=== PATIENT | male | born 1955 | race Caucasian/White ===

== ENCOUNTER 2017-06-13 13:07 | Emergency (ER) | payer MEDICARE, OTHER ==
[2017-06-13] MEDS ORDERED: Adacel Vial IM ONE ×2 (13:26→13:35)
[2017-06-13] MEDS ORDERED: NORCO 5/325 MG PO ONE (13:26)
[2017-06-13] MEDS ORDERED: BACIGUENT PACKET TP ONE (13:26)
--- NOTE | 2017-06-13 13:34 | ERPHSYRPT ---
- History of Present Illness Time Seen by Provider: 06/13/17 13:27 Source: patient Exam Limitations: no limitations Patient Subjective Stated Complaint: rt thumb laceration Triage Nursing Assessment: 12 noon--cut tip of rt thumb with saw. bleeding controlled at present. radial pulse present. tip of rt thumb laceration 1.5 cm long. no other injury. good sensation. Physician History: This is a 62-year-old white male arrives with complaint of laceration/skin avulsion to the tip of the right distal thumb symptoms since noon. According to patient she was a using a table saw and struck she had distal right thumb with the table saw on the tip. Patient has pain in the distal right thumb he has appears to be a 1 cm skin avulsion fairly superficial to the distal right thumb. He has full range of motion to the right thumb and right hand. He has no other complaints. Past medical history includes COPD, cataracts, asthma, emphysema, diabetes type 2, arthritis, GERD, prostate problems. Past surgical history includes cardiac catheter, hernia, right hip surgery, bilateral cataracts. Social history former smoker. Occurred: just prior to arrival (noon today) Quality: constant Severity of Pain-Max: mild Severity of Pain-Current: mild Extremities Pain Location: thumb: right Modifying Factors: Improves With: nothing Associated Symptoms: none Allergies/Adverse Reactions: aspirin Allergy (Severe, Verified 06/13/17 13:27) throat swells levofloxacin [From Levaquin] Allergy (Mild, Verified 06/13/17 13:27) Hives Home Medications: Acetaminophen 500 mg [Tylenol Extra Strength 500 mg] 1,000 mg PO DAILY PRN 09/09/13 [History] Albuterol Common Canister [Proventil Common Canister] 2 puff IH QID PRN [History] Cetirizine HCl [Zyrtec] 10 mg PO DAILY PRN 09/09/13 [History] Etanercept [Enbrel] 50 mg SQ WEEKLY 09/09/13 [History] Fluticasone/Salmeterol 500/50* [Advair 500-50 Diskus] 1 puff IH BID 09/09/13 [History] Levalbuterol HCl 1.25 MG/0.5M* [Xopenex 1.25 MG/0.5 ML UD NEBULE] 1.25 mg IH QID 09/09/13 [History] Metformin HCl Xr 500 mg [Glucophage XR 500 MG] 500 mg PO DAILY 09/09/13 [ History] Mometasone Furoate [Nasonex] 2 spray NS DAILY 09/09/13 [History] Montelukast Sodium 10 mg [Singulair 10 MG] 10 mg PO DAILY 09/09/13 [History] Prednisone 20 mg [Deltasone 20 mg] 20 mg PO DAILY 09/09/13 [History] Tamsulosin HCl 0.4 mg [Flomax 0.4 MG] 0.4 mg PO DAILY 09/09/13 [History] Hx Tetanus, Diphtheria Vaccination/Date Given: No Hx Influenza Vaccination/Date Given: Yes Hx Pneumococcal Vaccination/Date Given: Yes (less than 5 years possibly 2011) - Review of Systems Constitutional: No Fever, No Chills Eyes: No Symptoms Ears, Nose, & Throat: No Symptoms Respiratory: No Cough, No Dyspnea Cardiac: No Chest Pain, No Edema, No Syncope Abdominal/Gastrointestinal: No Abdominal Pain, No Nausea, No Vomiting, No Diarrhea Genitourinary Symptoms: No Dysuria Musculoskeletal: Other (right thumb pain distally) Skin: Other (1 cm skin avulsion distal right thumb) Neurological: No Dizziness, No Focal Weakness, No Sensory Changes Psychological: No Symptoms Endocrine: No Symptoms All Other Systems: Reviewed and Negative - Past Medical History Pertinent Past Medical History: Yes Neurological History: No Pertinent History ENT History: Cataracts Cardiac History: No Pertinent History Respiratory History: Asthma, COPD, Emphysema Endocrine Medical History: Diabetes Type II Musculoskeletal History: Arthritis, Osteoarthritis GI Medical History: GERD History: No Pertinent History Psycho-Social History: No Pertinent History Male Reproductive Disorders: Prostate Problems - Past Surgical History Past Surgical History: Yes Neuro Surgical History: No Pertinent History Cardiac: Cardiac Catheterization Respiratory: No Pertinent History Gastrointestinal: Hernia Repair Genitourinary: No Pertinent History Musculoskeletal: Orthopedic Surgery Male Surgical History: Vasectomy Other Surgical History: sinus surgery. bilateral cataracts. RIGHT HIP REPLACEMENT - Social History Smoking Status: Never smoker How long have you smoked: less than Exposure to second hand smoke: No Drug Use: none Patient Lives Alone: No - Nursing Vital Signs Nursing Vital Signs: Initial Vital Signs Temperature 97.5 F 06/13/17 13:19 Pulse Rate 86 06/13/17 13:19 Respiratory Rate 18 06/13/17 13:19 Blood Pressure 157/104 06/13/17 13:19 O2 Sat by Pulse Oximetry 95 06/13/17 13:19 Pain Scale Pain Intensity 8 - Physical Exam General Appearance: mild distress Eyes, Ears, Nose, Throat Exam: moist mucous membranes Neck Exam: non-tender, supple Cardiovascular/Respiratory Exam: chest non-tender, normal breath sounds, regular rate/rhythm, no respiratory distress Abdominal Exam: non-tender, No guarding Back Exam: normal inspection, No vertebral tenderness Shoulder Exam: normal inspection, non-tender, no evidence of injury, normal ROM Elbow/Forearm Exam: normal inspection, non-tender, no evidence of injury, normal ROM Wrist Exam: normal inspection, non-tender, no evidence of injury, normal ROM Hand Exam: No normal inspection (1 cm skin avulsion distal right thumb(tip), full range of motion right thumb, good capillary refill right thumb, right thumb tender with palpation distally, sensation intact right thumb) Neuro/Tendon Exam: normal sensation, normal motor functions Mental Status Exam: alert, oriented x 3, cooperative Skin Exam: normal color, warm, dry SpO2 Interpretation: normal (95%) SpO2: 95 Oxygen Delivery: Room Air - Course Nursing assessment & vital signs reviewed: Yes - Radiology Exams Right Other X-ray Interpretation: Discussed w/ radiologist (x-ray right thumb: Distal tip soft tissue soft tissue swelling/laceration. No other bony, articular, or soft tissue abnormalities.) Ordered Tests: Active Orders 24 hr Category Date Time Status Wound Care STAT Care 06/13/17 13:26 Active FINGER(S) Stat Exams 06/13/17 Completed Medication Summary Discontinued Medications Generic Name Dose Route Start Last Admin Trade Name Freq PRN Reason Stop Dose Admin Hydrocodone Bitart/Acetaminophen 1 tab 06/13/17 13:26 06/13/17 13:39 [place] 5/325 Mg PO 06/13/17 13:27 1 tab STAT ONE Administration Hydrocodone Bitart/Acetaminophen Confirm 06/13/17 13:35 [place] 5/325 Mg Administered 06/13/17 13:36 Dose 1 tab .ROUTE .STK-MED ONE Bacitracin 0.9 gm 06/13/17 13:26 06/13/17 13:39 Baciguent Packet TP 06/13/17 13:27 0.9 gm STAT ONE Administration Bacitracin Confirm 06/13/17 13:35 Baciguent Packet Administered 06/13/17 13:36 Dose 1 gm .ROUTE .STK-MED ONE Diphtheria/Tetanus/Acell Pertussis 0.5 ml 06/13/17 13:26 06/13/17 13:38 Adacel Vial IM 06/13/17 13:27 0.5 ml .ONCE ONE Administration Diphtheria/Tetanus/Acell Pertussis Confirm 06/13/17 13:35 Adacel Vial Administered 06/13/17 13:36 Dose 0.5 ml IM .STK-MED ONE - Progress Progress: improved Progress Note: 06/13/17 13:32 62-year-old white male who hit the tip of his right thumb with a table saw blade at noon today he has small 1 cm skin avulsion to the distal right thumb. He has tender with palpation to the right distal thumb he has full range of motion to all fingers good capillary refill to all fingers. Sensation intact to all fingers. Will get an x-ray of the right thumb to rule out underlying bony injury. Plan clean area apply bacitracin [place] for pain up date DTaP. 6 06/13/17 13:47 Patient's x-ray right thumb negative fracture negative dislocation. Will plan to have nurse clean the area apply bacitracin. Will review patient's inspect report consider [place] for pain. 06/13/17 13:54 do not double up Tylenol in norco with Tylenol regularly scheduled. - Departure Time of Disposition: 13:52 Departure Disposition: Home Clinical Impression: skin avulsion right distal thumb Condition: Fair Critical Care Time: No Referrals: MEGHAN CALLE MD [Primary Care Provider] - Instructions: Care for a Laceration After Repair Additional Instructions: Return home. Clean area and apply bacitracin daily. [place] 5/325 #10 one orally every 4-6 hours as needed for pain. Follow-up with your family if problems or signs of infection. Return for acute distress or for severe symptoms. Prescriptions: Hydrocodone/Acetaminophen [[place] 5-325 Tablet] 1 tab PO Q4-6HPRN PRN #10 tablet PRN Reason: Pain
[2017-06-13] MEDS ORDERED: NORCO 5/325 MG ONE (13:35)
[2017-06-13] MEDS ORDERED: BACIGUENT PACKET ONE (13:35)
--- NOTE | 2017-06-13 13:59 | XRAY ---
Indication: Pain following saw blade injury. Comparison: None 3 views of the right thumb demonstrates distal tip soft tissue swelling/laceration. No other bony, articular, or soft tissue abnormalities.
[2017-06-13 14:07] VITALS: BP 148/75; PULSE 85; O2SAT 96
== END 2017-06-13 14:05 | disposition home or self-care (01) ==
LOC: ED 13:07
DX: S61.011A Laceration without foreign body of right thumb without damage to nail, initial encounter (principal); W29.8XXA Contact with other powered hand tools and household machinery, initial encounter; E11.9 Type 2 diabetes mellitus without complications; J44.9 Chronic obstructive pulmonary disease, unspecified; Z79.899 Other long term (current) drug therapy; Z79.84 Long term (current) use of oral hypoglycemic drugs
CPT/HCPCS: 73140; 90471; 90715; 99284; A9270-GY

== ENCOUNTER 2018-07-02 10:37 | Observation (INO) | payer MEDICARE ==
[2018-07-02] MEDS ORDERED: NON-FORMULARY ITEM (Cetirizine Hcl [Zyrtec] 10 MG) PO PRN (12:48)
[2018-07-02] MEDS ORDERED: TYLENOL EXTRA STRENGTH 500 MG PO PRN (12:48)
[2018-07-02] MEDS ORDERED: PROVENTIL COMMON CANISTER IH PRN (12:48)
[2018-07-02] MEDS ORDERED: MOMETASONE FUROATE NS PRN (12:48)
[2018-07-02] MEDS ORDERED: Ventolin Hfa MDI IH SCH (13:00)
[2018-07-02] MEDS ORDERED: LEVALBUTEROL HCL 1.25 MG IH SCH (13:00)
--- NOTE | 2018-07-02 13:07 | XRAY ---
Indication: Short of breath, cough, and congestion 2 weeks. COPD. Comparison: September 09, 2013. PA/lateral chest again hyperinflated and clear. Heart and mediastinal structures within normal limits. Bony thorax intact again with mild degenerative changes. Impression: Stable nonacute hyperinflated chest.
[2018-07-02] MEDS ORDERED: CLARITIN 10 MG PO PRN (13:18)
[2018-07-02] MEDS ORDERED: Flonase NASAL NS PRN (13:19)
[2018-07-02] MEDS: Zithromax 500 MG/ 250 ML NaCl Premix 500 MG/250 ML IVPB IV SCH (13:24)
[2018-07-02] MEDS: ROCEPHIN 1 Gm-D5w 50 ml Bag** 1 G/50 ML IVPB IV SCH (13:24)
[2018-07-02] MEDS: solu-MEDROL 40 MG IV SCH ×2 (13:28→21:31)
[2018-07-02] MEDS ORDERED: MEDICATION INTERVENTION MC SCH (13:30)
[2018-07-02] MEDS: Sodium Chloride 0.9% 10 ML FLUSH Syringe IV SCH ×2 (14:23→21:30)
[2018-07-02 14:30] LABS: Hemoglobin 15.3 gm/dl (12.5-18.0); Mean Cell Volume 90.1 fl (78-100); Mean Corpuscular Hemoglobin 28.7 pg (26-32); Mean Corpuscular Hgb Concent. 31.9 g/dl (32-36); Mean Platelet Volume 11.5 fl (6-9.5); Platelet Count 183 K/mm3 (150-450); Red Blood Count 5.33 M/mm3 (4.1-5.6); Red Cell Distribution Width 15.7 % (11.5-14.0); White Blood Count 6.3 K/mm3 (4.0-10.5)
[2018-07-02 14:47] LABS: ALBUMIN 4.2 g/dL (3.5-5.0); ALKALINE PHOSPHATASE 49 U/L (38-126); ANION GAP 15.5 MEQ/L (5-15); BLOOD UREA NITROGEN 16 mg/dL (9-20); CHLORIDE 99 mmol/L (98-107); Calcium 8.9 mg/dL (8.4-10.2); Carbon Dioxide 28 mmol/L (22-30); Creatinine 1 0.71 mg/dL (0.66-1.25); Glucose 313 mg/dL (74-106); Potassium 5.1 mmol/L (3.5-5.1); SGOT/AST 40 U/L (17-59); SGPT/ALT 46 U/L (0-50); SODIUM 137 mmol/L (137-145); Total Protein 6.6 g/dL (6.3-8.2)
[2018-07-02] MEDS: DUONEB 0.5-3 MG/3 ml Neb IH SCH ×3 (14:49→23:45)
[2018-07-02] MEDS ORDERED: Xopenex 1.25 MG/0.5 ML UD NEBULE IH SCH (15:00)
[2018-07-02 15:03] LABS: INFLUENZA A NEGATIVE (NEGATIVE); INFLUENZA B NEGATIVE (NEGATIVE); RESPIRATORY SYNCTIAL VIRUS NEGATIVE (Negative)
[2018-07-02] MEDS: Advair Hfa 230/21 Mcg COMMON CANISTER IH SCH (20:50)
[2018-07-02] MEDS: Neurontin 400 MG PO SCH (21:31)
[2018-07-02] MEDS: Zocor 10MG PO SCH (21:31)
[2018-07-02] MEDS: Lotrisone Cream TOP SCH (21:32)
[2018-07-02] MEDS: NovoLOG Insulin SQ PRN (21:35)
[2018-07-02] MEDS ORDERED: [UNRECOGNIZED DRUG - OTHER] TP SCH (22:00)
[2018-07-02] MEDS ORDERED: CLOTRIMAZOLE TP SCH (22:00)
[2018-07-02] MEDS ORDERED: ADVAIR 500-50 DISKUS IH SCH (22:00)
[2018-07-02] MEDS ORDERED: BETAMETHASONE TP SCH (22:00)
[2018-07-03] MEDS: DUONEB 0.5-3 MG/3 ml Neb IH SCH ×6 (03:43→22:43)
[2018-07-03] MEDS: Sodium Chloride 0.9% 10 ML FLUSH Syringe IV SCH ×3 (05:44→22:16)
[2018-07-03] MEDS: Advair Hfa 230/21 Mcg COMMON CANISTER IH SCH ×2 (06:59→18:32)
[2018-07-03] MEDS: NovoLOG Insulin SQ PRN ×3 (07:44→17:57)
[2018-07-03] MEDS: AMARYL 4 MG PO SCH (07:44)
[2018-07-03] MEDS ORDERED: Amaryl 2 MG PO SCH (08:00)
[2018-07-03] MEDS: solu-MEDROL 40 MG IV SCH ×2 (09:20→22:00)
[2018-07-03] MEDS: Glucophage XR 500 MG PO SCH (09:20)
[2018-07-03] MEDS: Singulair 10 MG PO SCH (09:20)
[2018-07-03] MEDS: Flomax 0.4 MG PO SCH (09:20)
[2018-07-03] MEDS: ROCEPHIN 1 Gm-D5w 50 ml Bag** 1 G/50 ML IVPB IV SCH (09:20)
[2018-07-03] MEDS: Zithromax 500 MG/ 250 ML NaCl Premix 500 MG/250 ML IVPB IV SCH (09:20)
[2018-07-03] MEDS: Lotrisone Cream TOP SCH ×2 (09:20→22:14)
[2018-07-03] MEDS ORDERED: NON-FORMULARY ITEM (Pravastatin Sodium [Pravastatin Sodium] 10 MG) PO SCH (10:00)
[2018-07-03] MEDS ORDERED: DELTASONE 20 MG PO SCH (10:00)
[2018-07-03] MEDS: Neurontin 400 MG PO SCH (22:00)
[2018-07-03] MEDS: Zocor 10MG PO SCH (22:00)
[2018-07-04] MEDS: DUONEB 0.5-3 MG/3 ml Neb IH SCH ×3 (03:15→11:02)
[2018-07-04] MEDS: Sodium Chloride 0.9% 10 ML FLUSH Syringe IV SCH (05:31)
[2018-07-04] MEDS: Advair Hfa 230/21 Mcg COMMON CANISTER IH SCH (06:46)
[2018-07-04] MEDS: NovoLOG Insulin SQ PRN ×2 (08:08→11:19)
[2018-07-04] MEDS: AMARYL 4 MG PO SCH (08:49)
[2018-07-04] MEDS: ROCEPHIN 1 Gm-D5w 50 ml Bag** 1 G/50 ML IVPB IV SCH (09:25)
[2018-07-04] MEDS: Flomax 0.4 MG PO SCH (09:27)
[2018-07-04] MEDS: Glucophage XR 500 MG PO SCH (09:27)
[2018-07-04] MEDS: Singulair 10 MG PO SCH (09:28)
[2018-07-04] MEDS: Lotrisone Cream TOP SCH (09:28)
[2018-07-04] MEDS: solu-MEDROL 40 MG IV SCH (09:30)
[2018-07-04] MEDS: Zithromax 500 MG/ 250 ML NaCl Premix 500 MG/250 ML IVPB IV SCH (10:09)
[2018-07-04 11:06] VITALS: PULSE 88
[2018-07-04 11:09] VITALS: BP 144/80; O2SAT 94
[2018-07-09] MEDS ORDERED: ADALIMUMAB 40 MG SQ SCH (10:00)
== END 2018-07-04 12:20 | disposition home or self-care (01) ==
LOC: MED SURG 11:14 → OBSVTOIN 11:14 → INTOOBSV 11:14
PROVIDERS: ADMIT General Practice; ATTEND General Practice
DX: J44.1 Chronic obstructive pulmonary disease with (acute) exacerbation (principal); I10 Essential (primary) hypertension; M19.90 Unspecified osteoarthritis, unspecified site; E11.9 Type 2 diabetes mellitus without complications; I73.9 Peripheral vascular disease, unspecified; Z80.9 Family history of malignant neoplasm, unspecified; Z79.899 Other long term (current) drug therapy
CPT/HCPCS: 36415; 71046; 80053; 82962; 83036; 85027; 87631; 94150; 94640; 94760; G0378; J0456; J0696; J2920; A9270-GY

== ENCOUNTER 2019-08-01 07:32 | Observation (INO) | payer MEDICARE ==
--- NOTE | 2019-08-01 07:33 | ERPHSYRPT ---
- History of Present Illness Time Seen by Provider: 08/01/19 07:33 Source: patient, family Exam Limitations: no limitations Physician History: 64 y/o diabetic obese white male with h/o copd presents with 1.5 week h/o worsening coughing. pt started on doxycyline by dr. calle his pcp..sx not improved. pt denies cp and denies abd pain. pt denies n/v/d. Timing/Duration: week(s) (1.5), worse Cough Quality/Degree: moderate, dry cough Possible Cause: occasional episodes Modifying Factors: Improves With: coughing Associated Symptoms: cough, muscle aches, shortness of breath (mild) Allergies/Adverse Reactions: aspirin Allergy (Severe, Verified 08/01/19 07:53) throat swells cefpodoxime [From Vantin] Allergy (Mild, Verified 08/01/19 07:53) Rash levofloxacin [From Levaquin] Allergy (Mild, Verified 08/01/19 07:53) Hives moxifloxacin [From Avelox] Allergy (Mild, Verified 08/01/19 07:53) Rash fexofenadine [From Iliana] Allergy (Verified 08/01/19 07:53) Home Medications: Metformin HCl Xr 500 mg [Glucophage XR 500 MG] 1,000 mg PO DAILY 09/09/13 [History] Montelukast Sodium 10 mg [Singulair 10 MG] 10 mg PO DAILY 09/09/13 [History] Prednisone 20 mg [Deltasone 20 mg] 10 mg PO DAILY 09/09/13 [History] Tamsulosin HCl 0.4 mg [Flomax 0.4 MG] 0.4 mg PO DAILY 09/09/13 [History] Albuterol Sulfate [Ventolin Hfa] 2 puff IH QID 07/02/18 [History] Gabapentin 400 mg [Neurontin 400 MG] 400 mg PO HS 07/02/18 [History] Glimepiride 2 mg [Amaryl 2 MG] 8 mg PO 0800 07/02/18 [History] Levalbuterol HCl [Xopenex] 1.25 mg IH TID 07/02/18 [History] Pravastatin Sodium 10 mg PO DAILY 07/02/18 [History] Adalimumab [Humira] 40 mg SQ UD 08/01/19 [History] Doxycycline Hyclate 100 mg [Vibramycin 100 MG] 100 mg PO BID 08/01/19 [ History] Fluticasone/Salmeterol 500/50* [Advair 500-50 Diskus] 1 each IH BID 08/01/19 [History] Hx Tetanus, Diphtheria Vaccination/Date Given: No Hx Influenza Vaccination/Date Given: Yes Hx Pneumococcal Vaccination/Date Given: Yes (less than 5 years possibly 2011) - Review of Systems Constitutional: No Symptoms Eyes: No Symptoms Ears, Nose, & Throat: No Symptoms Respiratory: Cough, Dyspnea (mild) Cardiac: No Symptoms, No Chest Pain, No Palpitations Abdominal/Gastrointestinal: No Symptoms Genitourinary Symptoms: No Symptoms Musculoskeletal: No Symptoms Skin: No Symptoms Neurological: No Symptoms Psychological: No Symptoms Endocrine: No Symptoms Hematologic/Lymphatic: No Symptoms Immunological/Allergic: No Symptoms All Other Systems: Reviewed and Negative - Past Medical History Pertinent Past Medical History: No Neurological History: No Pertinent History ENT History: Cataracts Cardiac History: No Pertinent History Respiratory History: COPD Endocrine Medical History: Diabetes Type II Musculoskeletal History: No Pertinent History GI Medical History: Hernia History: No Pertinent History Psycho-Social History: Anxiety Male Reproductive Disorders: No Pertinent History - Past Surgical History Past Surgical History: Yes (Hernia, Hip replacement) Neuro Surgical History: No Pertinent History Cardiac: No Pertinent History Respiratory: No Pertinent History Gastrointestinal: No Pertinent History Genitourinary: No Pertinent History Musculoskeletal: No Pertinent History Male Surgical History: No Pertinent History Other Surgical History: sinus surgery. bilateral cataracts. RIGHT HIP REPLACEMENT - Social History Smoking Status: Never smoker How long have you smoked: less than Exposure to second hand smoke: No Drug Use: none Patient Lives Alone: No - Nursing Vital Signs Nursing Vital Signs: Initial Vital Signs Temperature 98.9 F 08/01/19 07:33 Pulse Rate 116 H 08/01/19 07:33 Respiratory Rate 30 H 08/01/19 07:33 Blood Pressure 147/83 08/01/19 07:33 O2 Sat by Pulse Oximetry 90 L 08/01/19 07:33 Pain Scale Pain Intensity 0 - Physical Exam General Appearance: mild distress, alert, anxiety, obese Eye Exam: PERRL/EOMI, eyes nml inspection Ears, Nose, Throat Exam: normal ENT inspection, moist mucous membranes Neck Exam: normal inspection, non-tender, supple, full range of motion Respiratory Exam: airway intact, rhonchi, wheezing, No chest tenderness, No respiratory distress, No accessory muscle use, No stridor Cardiovascular Exam: tachycardia Gastrointestinal/Abdomen Exam: soft, normal bowel sounds, No tenderness Rectal Exam: not done Back Exam: normal inspection, normal range of motion, CVA tenderness Extremity Exam: normal inspection, normal range of motion, pelvis stable Neurologic Exam: alert, oriented x 3, cooperative, chemical inspector II-XII nml as tested Skin Exam: normal color, warm, dry Lymphatic Exam: No adenopathy SpO2 Interpretation: borderline oxygenation O2 Delivery: Room Air - Course Nursing assessment & vital signs reviewed: Yes Ordered Tests: Active Orders 24 hr Category Date Time Status Head Strength And Conditioning Coach STAT Care 08/01/19 07:38 Active IV Insertion STAT Care 08/01/19 07:37 Active CHEST 1 VIEW (PORTABLE) Stat Exams 08/01/19 07:38 Completed BLOOD CULTURE Stat Lab 08/01/19 07:47 Received CBC W DIFF Stat Lab 08/01/19 07:47 Completed CMP Stat Lab 08/01/19 07:47 Completed Lactic Acid Stat Lab 08/01/19 07:37 Results Manual Differential NC Stat Lab 08/01/19 07:47 Completed NT PRO BNP Stat Lab 08/01/19 07:47 Completed Respiratory Therapy Assessment DAILY RT 08/01/19 09:32 Active Medication Summary Generic Name Dose Route Start Last Admin Trade Name Freq PRN Reason Stop Dose Admin Azithromycin 500 mg in 250 mls @ 250 mls/hr 08/01/19 09:41 Zithromax 500 Mg/ 250 Ml Nacl Premix IV 08/01/19 10:40 STAT STA Discontinued Medications Generic Name Dose Route Start Last Admin Trade Name Freq PRN Reason Stop Dose Admin Hydrocodone Bitart/Acetaminophen 15 ml 08/01/19 09:41 Hydrocodone-Acetamin 2.5-108/5 Ml Solution PO 08/01/19 09:42 STAT STA Albuterol Sulfate 2.5 mg 08/01/19 07:37 08/01/19 08:00 Proventil 2.5 Mg/3 Ml Neb IH 08/01/19 07:38 2.5 mg STAT ONE Administration Albuterol Sulfate Confirm 08/01/19 07:58 Proventil 2.5 Mg/3 Ml Neb Administered 08/01/19 07:59 Dose 2.5 mg IH .STK-MED ONE Sodium Chloride 500 mls @ 500 mls/hr 08/01/19 08:34 08/01/19 08:38 Sodium Chloride 0.9% 500 Ml IV 08/01/19 09:33 500 mls/hr .Q1H ONE Administration Sodium Chloride Confirm 08/01/19 08:35 Sodium Chloride 0.9% 500 Ml Administered 08/01/19 08:36 Dose 500 mls @ ud IV .STK-MED ONE Methylprednisolone Sodium Succinate 125 mg 08/01/19 07:37 08/01/19 07:56 Solu-Medrol 125 Mg IV 08/01/19 07:38 125 mg STAT ONE Administration Methylprednisolone Sodium Succinate Confirm 08/01/19 07:43 Solu-Medrol 125 Mg Administered 08/01/19 07:44 Dose 125 mg .ROUTE .STK-MED ONE Lab/Rad Data: Laboratory Result Diagrams 08/01/19 07:47 08/01/19 07:47 Laboratory Results 08/01/19 08/01/19 08/01/19 Range/Units 07:47 07:47 07:47 WBC 8.7 (4.0-10.5) K/mm3 RBC 5.51 (4.1-5.6) M/mm3 Hgb 16.1 (12.5-18.0) gm/dl Hct 49.1 (42-50) % MCV 89.1 (78-100) fl MCH 29.2 (26-32) pg MCHC 32.8 (32-36) g/dl RDW 15.0 H (11.5-14.0) % Plt Count 171 (150-450) K/mm3 MPV 11.9 H (7.5-11.0) fl Absolute Granulocytes 5.69 (1.4-6.9) Segmented Neutrophils 59 (36.-66.) % Band Neutrophils 6 H (0.0-2.0) % Lymphocytes (Manual) 20 L (24-44) % Monocytes (Manual) 9 (0.0-12.0) % Eosinophils (Manual) 4 H (0.00-3.0) % Basophils (Manual) 2 H (0.0-1.0) % Platelet Estimate NORMAL (NORMAL) RBC Morphology NORMAL Sodium 133 L (137-145) mmol/L Potassium 4.1 (3.5-5.1) mmol/L Chloride 96 L (98-107) mmol/L Carbon Dioxide 29 (22-30) mmol/L Anion Gap 12.7 (5-15) MEQ/L BUN 14 (9-20) mg/dL Creatinine 0.71 (0.66-1.25) mg/dL Estimated GFR > 60.0 ML/MIN Glucose 213 H (74-106) mg/dL Lactic Acid (0.4-2.0) Calcium 9.4 (8.4-10.2) mg/dL Total Bilirubin 0.70 (0.2-1.3) mg/dL AST 37 (17-59) U/L ALT 35 (0-50) U/L Alkaline Phosphatase 47 (38-126) U/L NT-Pro-B Natriuret Pep 57.4 (0-900) pg/mL Serum Total Protein 6.8 (6.3-8.2) g/dL Albumin 4.0 (3.5-5.0) g/dL Influenza Type A Ag NEGATIVE (NEGATIVE) Influenza Type B Ag NEGATIVE (NEGATIVE) RSV (PCR) POSITIVE (Negative) 08/01/19 Range/Units 07:37 WBC (4.0-10.5) K/mm3 RBC (4.1-5.6) M/mm3 Hgb (12.5-18.0) gm/dl Hct (42-50) % MCV (78-100) fl MCH (26-32) pg MCHC (32-36) g/dl RDW (11.5-14.0) % Plt Count (150-450) K/mm3 MPV (7.5-11.0) fl Absolute Granulocytes (1.4-6.9) Segmented Neutrophils (36.-66.) % Band Neutrophils (0.0-2.0) % Lymphocytes (Manual) (24-44) % Monocytes (Manual) (0.0-12.0) % Eosinophils (Manual) (0.00-3.0) % Basophils (Manual) (0.0-1.0) % Platelet Estimate (NORMAL) RBC Morphology Sodium (137-145) mmol/L Potassium (3.5-5.1) mmol/L Chloride (98-107) mmol/L Carbon Dioxide (22-30) mmol/L Anion Gap (5-15) MEQ/L BUN (9-20) mg/dL Creatinine (0.66-1.25) mg/dL Estimated GFR ML/MIN Glucose (74-106) mg/dL Lactic Acid 2.9 H (0.4-2.0) Calcium (8.4-10.2) mg/dL Total Bilirubin (0.2-1.3) mg/dL AST (17-59) U/L ALT (0-50) U/L Alkaline Phosphatase (38-126) U/L NT-Pro-B Natriuret Pep (0-900) pg/mL Serum Total Protein (6.3-8.2) g/dL Albumin (3.5-5.0) g/dL Influenza Type A Ag (NEGATIVE) Influenza Type B Ag (NEGATIVE) RSV (PCR) (Negative) - Progress Progress: improved Air Movement: good Progress Note: 08/01/19 09:38 cxr-no acute process Blood Culture(s) Obtained: Yes Antibiotics given: Yes Counseled pt/family regarding: lab results, diagnosis, need for follow-up, rad results - Departure Departure Disposition: Home Clinical Impression: RSV bronchiolitis Condition: Stable Critical Care Time: No Referrals: MEGHAN CALLE MD [Primary Care Provider] - Additional Instructions: drink plenty of fluids. continue your docycycline. use your albuterol inhaler/ nebulizer every 4 hours while awake. follow up with primary doctor for persistent symptoms Prescriptions: Hydrocodone Bit/Acetaminophen [Hydrocodone-Acetaminophen Soln] 10 ml PO Q6H # 120 ml Prednisone 10 mg [Deltasone 10 mg] 10 mg PO TID #12 tablet
[2019-08-01] MEDS ORDERED: solu-MEDROL 125 MG IV ONE (07:37)
[2019-08-01] MEDS ORDERED: PROVENTIL 2.5 MG/3 ML NEB IH ONE ×2 (07:37→07:58)
[2019-08-01] MEDS ORDERED: solu-MEDROL 125 MG ONE (07:43)
[2019-08-01 07:57] LABS: Lactic Acid 2.9 (0.4-2.0)
[2019-08-01 08:23] LABS: Hematocrit 49.1 % (42-50); Hemoglobin 16.1 gm/dl (12.5-18.0); Mean Cell Volume 89.1 fl (78-100); Mean Corpuscular Hemoglobin 29.2 pg (26-32); Mean Corpuscular Hgb Concent. 32.8 g/dl (32-36); Mean Platelet Volume 11.9 fl (7.5-11.0); Platelet Count 171 K/mm3 (150-450); Red Blood Count 5.51 M/mm3 (4.1-5.6); White Blood Count 8.7 K/mm3 (4.0-10.5)
[2019-08-01 08:30] LABS: ALKALINE PHOSPHATASE 47 U/L (38-126); ANION GAP 12.7 MEQ/L (5-15); BLOOD UREA NITROGEN 14 mg/dL (9-20); CHLORIDE 96 mmol/L (98-107); Calcium 9.4 mg/dL (8.4-10.2); Carbon Dioxide 29 mmol/L (22-30); Creatinine 1 0.71 mg/dL (0.66-1.25); Glucose 213 mg/dL (74-106); Potassium 4.1 mmol/L (3.5-5.1); SGOT/AST 37 U/L (17-59); SGPT/ALT 35 U/L (0-50); SODIUM 133 mmol/L (137-145); Total Protein 6.8 g/dL (6.3-8.2)
[2019-08-01 08:33] LABS: BAND 6 % (0.0-2.0); Basophil 2 % (0.0-1.0); Eosinophil 4 % (0.00-3.0); Lymphocytes 20 % (24-44); Monocyte 9 % (0.0-12.0); Neutrophils 59 % (36.-66.); Platelet Estimate NORMAL (NORMAL); Total Cells Counted 100
[2019-08-01 08:34] LABS: Absolute Neutrophil Ct (ANC) 5.69 (1.4-6.9)
[2019-08-01] MEDS ORDERED: Sodium Chloride 0.9% 500 ML 500 ML IV ONE ×4 (08:34→09:52)
--- NOTE | 2019-08-01 08:41 | XRAY ---
Indication: Cough and short of breath. Comparison: July 02, 2018 Portable apical lordotic chest remains clear. Heart is not enlarged. Bony thorax intact again with mild degenerative changes. Impression: Nonacute chest.
[2019-08-01 09:15] LABS: INFLUENZA A NEGATIVE (NEGATIVE); INFLUENZA B NEGATIVE (NEGATIVE); RESPIRATORY SYNCTIAL VIRUS POSITIVE (Negative)
[2019-08-01 09:28] LABS: NT PRO BNP 57.4 pg/mL (0-900)
[2019-08-01] MEDS ORDERED: Zithromax 500 MG/ 250 ML NaCl Premix 500 MG/250 ML IVPB IV STA (09:41)
[2019-08-01] MEDS ORDERED: HYDROCODONE-ACETAMIN 2.5-108/5 ML SOLUTION PO STA (09:41)
[2019-08-01] MEDS ORDERED: HYDROCODONE-ACETAMIN 2.5-108/5 ML SOLUTION ONE (09:56)
[2019-08-01] MEDS ORDERED: DUONEB 0.5-3 MG/3 ml Neb IH ONE ×2 (09:58→10:05)
[2019-08-01] MEDS ORDERED: Zithromax 500 MG/ 250 ML NaCl Premix 500 MG/250 ML IVPB IV ONE (10:15)
[2019-08-01 10:39] LABS: Lactic Acid 2.5 (0.4-2.0)
[2019-08-01] MEDS ORDERED: TYLENOL 325 MG PO PRN (16:28)
[2019-08-01] MEDS: solu-MEDROL 125 MG IV SCH ×2 (17:28→22:08)
[2019-08-01] MEDS: Sodium Chloride 0.9% 1000 ML 1,000 ML IV SCH (17:28)
[2019-08-01] MEDS ORDERED: MEDICATION INTERVENTION MC SCH (17:45)
[2019-08-01] MEDS ORDERED: ADALIMUMAB 40 MG SQ SCH (17:45)
[2019-08-01] MEDS: CLARITIN-D 24HR TABLET PO SCH (18:34)
[2019-08-01] MEDS: Glucophage XR 500 MG PO SCH (18:34)
[2019-08-01] MEDS: Flomax 0.4 MG PO SCH (18:35)
[2019-08-01] MEDS: Singulair 10 MG PO SCH (18:35)
[2019-08-01] MEDS: Zocor 10MG PO SCH (18:35)
[2019-08-01] MEDS ORDERED: Advair Hfa 230/21 Mcg COMMON CANISTER IH SCH (19:00)
[2019-08-01] MEDS ORDERED: PROVENTIL COMMON CANISTER IH SCH (19:00)
[2019-08-01] MEDS: Sodium Chloride 3 ML UD NEBULES IH SCH (19:06)
[2019-08-01] MEDS: Xopenex 1.25 MG/0.5 ML UD NEBULE IH SCH (19:06)
[2019-08-01] MEDS ORDERED: PROVENTIL COMMON CANISTER IH PRN (19:09)
[2019-08-01] MEDS ORDERED: Xopenex 1.25 MG/0.5 ML UD NEBULE IH PRN (19:13)
[2019-08-01] MEDS: ADVAIR 500-50 DISKUS IH SCH (20:08)
[2019-08-01] MEDS ORDERED: Ventolin Hfa MDI IH SCH (22:00)
[2019-08-01] MEDS ORDERED: ADVAIR 500-50 DISKUS IH SCH (22:00)
[2019-08-01] MEDS ORDERED: LEVALBUTEROL HCL 1.25 MG IH SCH (22:00)
[2019-08-01] MEDS: Vibramycin 100 MG PO SCH (22:08)
[2019-08-01] MEDS: Neurontin 400 MG PO SCH (22:08)
[2019-08-01] MEDS: Robitussin 100 MG/5 ML PO PRN (22:09)
[2019-08-02] MEDS: solu-MEDROL 125 MG IV SCH ×3 (05:13→22:15)
[2019-08-02] MEDS: Robitussin 100 MG/5 ML PO PRN (05:17)
[2019-08-02 06:06] LABS: Absolute Neutrophil Ct (ANC) 3.66 (1.4-6.9); BASOPHIL % 0.2 % (0.0-0.4); Basophil (Absolute #) 0.01 (0-0.4); Eosinophil (Absolute #) 0 (0-0.5); Hematocrit 46.3 % (42-50); Hemoglobin 14.8 gm/dl (12.5-18.0); Lymphocyte (Absolute #) 0.62 (1.0-4.6); Lymphocytes % 13.5 % (24.0-44.0); Mean Cell Volume 90.3 fl (78-100); Mean Corpuscular Hemoglobin 28.8 pg (26-32); Mean Platelet Volume 11.9 fl (7.5-11.0); Monocyte (Absolute #) 0.31 (0.0-1.3); Monocytes % 6.7 % (0.0-12.0); Neutrophil % 79.6 % (36.0-66.0); Platelet Count 185 K/mm3 (150-450); Red Blood Count 5.13 M/mm3 (4.1-5.6); White Blood Count 4.6 K/mm3 (4.0-10.5)
[2019-08-02 06:39] LABS: ANION GAP 15.6 MEQ/L (5-15); BLOOD UREA NITROGEN 21 mg/dL (9-20); CHLORIDE 95 mmol/L (98-107); Calcium 9.1 mg/dL (8.4-10.2); Carbon Dioxide 31 mmol/L (22-30); Creatinine 1 0.78 mg/dL (0.66-1.25); Glucose 320 mg/dL (74-106); Potassium 4.7 mmol/L (3.5-5.1); SODIUM 137 mmol/L (137-145)
[2019-08-02] MEDS: Xopenex 1.25 MG/0.5 ML UD NEBULE IH SCH ×3 (07:15→18:50)
[2019-08-02] MEDS: ADVAIR 500-50 DISKUS IH SCH ×2 (07:15→18:51)
[2019-08-02] MEDS: Sodium Chloride 3 ML UD NEBULES IH SCH ×3 (07:15→18:50)
[2019-08-02] MEDS: Vibramycin 100 MG PO SCH ×2 (08:58→22:14)
[2019-08-02] MEDS: Flomax 0.4 MG PO SCH (08:58)
[2019-08-02] MEDS: Zocor 10MG PO SCH (08:58)
[2019-08-02] MEDS: Singulair 10 MG PO SCH ×2 (08:58→08:59)
[2019-08-02] MEDS: CLARITIN-D 24HR TABLET PO SCH (08:59)
[2019-08-02] MEDS: AMARYL 4 MG PO SCH (09:02)
[2019-08-02] MEDS: NovoLOG Insulin SQ PRN ×4 (09:07→22:14)
[2019-08-02] MEDS ORDERED: DELTASONE 10 MG PO SCH (10:00)
[2019-08-02] MEDS ORDERED: PSEUDOEPHEDRINE PO SCH (10:00)
[2019-08-02] MEDS ORDERED: NON-FORMULARY ITEM (Pravastatin Sodium [Pravastatin Sodium] 10 MG) PO SCH (10:00)
[2019-08-02] MEDS ORDERED: CETIRIZINE HCL PO SCH (10:00)
[2019-08-02] MEDS: Sodium Chloride 0.9% 1000 ML 1,000 ML IV SCH (13:03)
--- NOTE | 2019-08-02 13:40 | PCM.NOTE ---
Date and Time: 08/02/19 1331 Subjective Assessment: Patient reports Dr. Bethea saw him yesterday. He reports continued shortness of breath and wheezing. He quit smoking years ago. Patient reports only sleeping 2 hours last night and cough and frequent urination keeping him up last night. - Review of Systems Constitutional: Weakness Respiratory: Cough, Short Of Breath, Wheezing Cardiac: No Symptoms Abdominal/Gastrointestinal: No Symptoms Genitourinary Symptoms: Frequency Objective Exam General Appearance: other (mild shortness of breath, talkative, in nad) Skin Exam: normal color, warm, dry Respiratory Exam: airway intact, prolonged expirations, wheezing, No crackles/ rales, No rhonchi Cardiovascular Exam: regular rate/rhythm, normal heart sounds, No friction rub, No gallop, No tachycardia Gastrointestinal/Abdomen Exam: soft, normal bowel sounds, No tenderness, No distention, No mass Extremity Exam: other (no c/c/e) OBJECTIVE DATA Vital Signs: Vital Signs - 24 hr Temp Pulse Resp BP Pulse Ox 08/02/19 13:07 80 22 92 L 08/02/19 12:51 97.7 F 74 20 140/76 93 L 08/02/19 07:50 97.5 F 91 H 18 142/78 92 L 08/02/19 07:20 91 H 18 92 L 08/02/19 04:00 97.9 F 65 18 130/65 93 L 08/02/19 00:00 98.0 F 95 H 19 137/70 93 L 08/01/19 20:11 90 L 08/01/19 20:05 97.8 F 93 H 21 152/60 97 08/01/19 16:45 97.8 F 109 H 20 142/78 94 L 08/01/19 16:28 94 L 08/01/19 16:05 97.8 F 89 20 142/78 94 L 08/01/19 15:50 82 16 125/62 93 L 08/01/19 14:40 87 16 119/68 95 Oxygen-Last 24 hours O2 Percentage 2 Liters = 28% O2 Percentage 2 Liters = 28% O2 Percentage 2 Liters = 28% O2 Percentage 2 Liters = 28% O2 Percentage 2 Liters = 28% O2 Percentage 2 Liters = 28% O2 Percentage 2 Liters = 28% O2 Percentage 2 Liters = 28% Pain Assessment - Last Documented Pain Intensity 10 Pain Scale Used 0-10 Pain Scale Intake and Output: Intake & Output 07/31/19 08/01/19 08/02/19 08/03/19 06:59 06:59 06:59 06:59 Intake Total 1789 600 Output Total 450 Balance 1789 150 Weight 109.8 kg Lab Results: Accuchecks Date 08/02/19 Date 08/02/19 Time 11:30 Time 07:30 Accucheck Value: 352 Accucheck Value: 277 Lab Results-Last 24 Hours 08/02/19 08/02/19 08/02/19 Range/Units 05:00 05:30 05:30 WBC 4.6 (4.0-10.5) K/mm3 RBC 5.13 (4.1-5.6) M/mm3 Hgb 14.8 (12.5-18.0) gm/dl Hct 46.3 (42-50) % MCV 90.3 (78-100) fl MCH 28.8 (26-32) pg MCHC 32.0 (32-36) g/dl RDW 15.0 H (11.5-14.0) % Plt Count 185 (150-450) K/mm3 MPV 11.9 H (7.5-11.0) fl Gran % 79.6 H (36.0-66.0) % Eos # (Auto) 0 (0-0.5) Absolute Lymphs (auto) 0.62 L (1.0-4.6) Absolute Monos (auto) 0.31 (0.0-1.3) Lymphocytes % 13.5 L (24.0-44.0) % Monocytes % 6.7 (0.0-12.0) % Eosinophils % 0.0 (0.00-5.0) % Basophils % 0.2 (0.0-0.4) % Absolute Granulocytes 3.66 (1.4-6.9) Basophils # 0.01 (0-0.4) Sodium 137 (137-145) mmol/L Potassium 4.7 (3.5-5.1) mmol/L Chloride 95 L (98-107) mmol/L Carbon Dioxide 31 H (22-30) mmol/L Anion Gap 15.6 H (5-15) MEQ/L BUN 21 H (9-20) mg/dL Creatinine 0.78 (0.66-1.25) mg/dL Estimated GFR > 60.0 ML/MIN Glucose 320 H (74-106) mg/dL Hemoglobin A1c 10.45 H (4.5-6.0) % Calcium 9.1 (8.4-10.2) mg/dL Radiology Exams: Radiology Procedures Category Date Time Status CHEST 1 VIEW (PORTABLE) Stat Exams 08/01/19 07:38 Completed Assessment/Plan (1) RSV bronchiolitis Current Visit: Yes Status: Acute Assessment & Plan: Continue supportive care. Continue cough medication. Code(s): J21.0 - ACUTE BRONCHIOLITIS DUE TO RESPIRATORY SYNCYTIAL VIRUS (2) COPD exacerbation Current Visit: No Status: Acute Assessment & Plan: Continue IV steroids, oxygen, doxycycline, and breathing treatments. Code(s): J44.1 - CHRONIC OBSTRUCTIVE PULMONARY DISEASE W (ACUTE) EXACERBATION (3) Diabetes type 2, uncontrolled Current Visit: Yes Status: Acute Qualifiers: Glycemic state: with hyperglycemia Qualified Code(s): E11.65 - Type 2 diabetes mellitus with hyperglycemia Assessment & Plan: Hgb A1C is 10.4 with high blood glucoses currently also which may be in part due to steroids. Low dose sliding scale started and starting lantus 20 units daily. Continue home oral medications for diabetes as well. Code(s): E11.65 - TYPE 2 DIABETES MELLITUS WITH HYPERGLYCEMIA (4) Polyuria Current Visit: Yes Status: Acute Assessment & Plan: Most likely due to hyperglycemia. Will check UA also. Code(s): R35.8 - OTHER POLYURIA (5) BPH (benign prostatic hyperplasia) Current Visit: Yes Status: Acute Assessment & Plan: Continue flomax. Code(s): N40.0 - BENIGN PROSTATIC HYPERPLASIA WITHOUT LOWER URINRY TRACT SYMP (6) DVT prophylaxis Current Visit: Yes Status: Acute Assessment & Plan: Start lovenox and roseann hose. Code(s): Z29.9 - ENCOUNTER FOR PROPHYLACTIC MEASURES, UNSPECIFIED
[2019-08-02] MEDS ORDERED: Lantus Insulin SQ ONE (14:15)
[2019-08-02] MEDS: Glucophage XR 500 MG PO SCH (17:09)
[2019-08-02] MEDS: Tessalon Perles 100 MG PO PRN ×2 (17:09→22:15)
[2019-08-02 19:07] LABS: Appearance CLEAR (CLEAR); Bilirubin NEGATIVE (NEGATIVE); Blood MODERATE Ery/ul (0-5); Glucose >=500 mg/dL (NEGATIVE); Ketones SMALL (NEGATIVE); Leukocyte Esterase NEGATIVE (NEGATIVE); Nitrite NEGATIVE (NEGATIVE); Protein,Urine Dip NEGATIVE (Negative); Specific Gravity 1.021 (1.005-1.025); Urobilinogen NEGATIVE mg/dL (0-1)
[2019-08-02 19:09] LABS: Bacteria NONE SEEN /HPF (NEGATIVE)
[2019-08-02] MEDS: Neurontin 400 MG PO SCH (22:14)
[2019-08-02] MEDS ORDERED: Sodium Chloride 3 ML UD NEBULES IH ONE (22:43)
[2019-08-03] MEDS: solu-MEDROL 125 MG IV SCH (06:16)
[2019-08-03] MEDS: Tessalon Perles 100 MG PO PRN (06:21)
[2019-08-03] MEDS: ADVAIR 500-50 DISKUS IH SCH (08:04)
[2019-08-03] MEDS: Sodium Chloride 3 ML UD NEBULES IH SCH (08:06)
[2019-08-03] MEDS: Xopenex 1.25 MG/0.5 ML UD NEBULE IH SCH (08:06)
[2019-08-03] MEDS: Vibramycin 100 MG PO SCH (08:44)
[2019-08-03] MEDS: AMARYL 4 MG PO SCH (08:44)
[2019-08-03] MEDS: Flomax 0.4 MG PO SCH (08:44)
[2019-08-03] MEDS: Singulair 10 MG PO SCH (08:45)
[2019-08-03] MEDS: NovoLOG Insulin SQ PRN ×2 (08:45→12:15)
[2019-08-03] MEDS: CLARITIN-D 24HR TABLET PO SCH (08:45)
[2019-08-03] MEDS: Zocor 10MG PO SCH (08:45)
[2019-08-03] MEDS: Sodium Chloride 0.9% 1000 ML 1,000 ML IV SCH (08:50)
[2019-08-03] MEDS ORDERED: ENOXAPARIN SODIUM SQ SCH (10:00)
[2019-08-03] MEDS ORDERED: Lantus Insulin SQ SCH (10:00)
[2019-08-03] MEDS ORDERED: DUONEB 0.5-3 MG/3 ml Neb IH SCH (11:00)
--- NOTE | 2019-08-03 11:59 | PCM.DCORD ---
- Discharge Discharge Date: 08/03/19 Disposition: Home, Self-Care Condition: Fair Prescriptions: New Pen Needle, Diabetic [Bd Ultra-Fine Pen Needle] 1 each MC DAILY #50 dis.needle Prednisone 20 mg [Deltasone 20 mg] 20 mg PO UD #10 tablet Insulin Glargine,Hum.rec.anlog [Lantus Solostar] 20 unit SQ DAILY #2 pen Benzonatate [Tessalon Perle] 200 mg PO TID PRN #40 capsule PRN Reason: Cough Continue Tamsulosin HCl 0.4 mg [Flomax 0.4 MG] 0.4 mg PO DAILY Metformin HCl Xr 500 mg [Glucophage XR 500 MG] 1,000 mg PO DAILY Montelukast Sodium 10 mg [Singulair 10 MG] 10 mg PO DAILY Levalbuterol HCl [Xopenex] 1.25 mg IH TID Albuterol Sulfate [Ventolin Hfa] 2 puff IH QID Gabapentin 400 mg [Neurontin 400 MG] 400 mg PO HS Pravastatin Sodium 10 mg PO DAILY Glimepiride 2 mg [Amaryl 2 MG] 8 mg PO 0800 Fluticasone/Salmeterol 500/50* [Advair 500-50 Diskus] 1 each IH BID Adalimumab [Humira] 40 mg SQ UD Cetirizine HCl/Pseudoephedrine [Zyrtec-D Tablet] 1 tab PO DAILY Doxycycline Hyclate 100 mg [Vibramycin 100 MG] 100 mg PO BID #16 tab Discontinued Prednisone 20 mg [Deltasone 20 mg] 10 mg PO DAILY Additional Instructions: Check your blood glucose three times a day; use oxygen by nasal cannula 3 Liters at all time for copd. Follow up with Dr. Calle this week. Return to ER if worsening shortness of breath, chest pain, or any concerns. Follow up with: MEGHAN CALLE MD [Primary Care Provider] - 1 Week
[2019-08-03 12:30] VITALS: BP 148/74; PULSE 86; O2SAT 96
--- NOTE | 2019-08-04 13:12 | DS ---
DISCHARGE DIAGNOSES: 1) RESPIRATORY SYNCYTIAL VIRUS BRONCHIOLITIS. 2) CHRONIC OBSTRUCTIVE PULMONARY DISEASE EXACERBATION. 3) DIABETES MELLITUS TYPE 2, UNCONTROLLED. 4) POLYURIA. 5) BENIGN PROSTATIC HYPERTROPHY. DISCHARGE PHYSICAL EXAMINATION: VITALS: Temperature current 97.8F, heart rate 86, respiratory rate 20, blood pressure 148/74. Oxygen saturation 96% on 2 liters. GENERAL: The patient is a pleasant talkative man sitting up in no acute distress. His is at the bedside. CVS: His heart has a regular rate and rhythm. No murmurs, gallops or rubs are appreciated. CHEST: Distant breath sounds bilaterally with equal breath sounds. No crackles. No rhonchi. No wheezing. ABDOMEN: Soft, nontender, nondistended with normal bowel sounds. EXTREMITIES: No clubbing, cyanosis or edema. SKIN: Warm, dry and intact. HOSPITAL COURSE: 1) RESPIRATORY SYNCYTIAL VIRUS BRONCHIOLITIS: He is getting supportive care with oxygen and breathing treatments. 2) CHRONIC OBSTRUCTIVE PULMONARY DISEASE EXACERBATION: He was given IV steroids and will plan for a course of prednisone orally at the time of discharge. Will continue doxycycline, breathing treatments and oxygen at home. He reports he had oxygen at home in the past. He qualified for home oxygen with respiratory therapy and will need 3 liters at all times. The patient understood this. 3) DIABETES MELLITUS TYPE 2, UNCONTROLLED: His A1C was 10.4. His blood sugars also had been high during the hospitalization due to steroid use but obvious also were high before this. I started him on Lantus 20 units daily. He wanted to do this at home. He will continue his other diabetes medicine. 4) POLYURIA: The polyuria may have been due to the hyperglycemia or benign prostatic hypertrophy. 5) BENIGN PROSTATIC HYPERTROPHY: He was continued on his home dose of Flomax. DISCHARGE MEDICATIONS: Please see the discharge order. FOLLOW UP: He is to follow up with his primary care doctor, Dr. Bethea, this coming week. Oxygen was ordered. Further orders to come from his primary care doctor. DISPOSITION: The patient was discharged to home in fair condition.
== END 2019-08-03 13:50 | disposition home or self-care (01) ==
LOC: ED 07:32 → MED SURG 16:00
PROVIDERS: ADMIT General Practice; ATTEND General Practice
DX: J21.0 Acute bronchiolitis due to respiratory syncytial virus (principal); J44.1 Chronic obstructive pulmonary disease with (acute) exacerbation; E11.65 Type 2 diabetes mellitus with hyperglycemia; R35.8 Other polyuria; N40.0 Benign prostatic hyperplasia without lower urinary tract symptoms; Z79.899 Other long term (current) drug therapy
CPT/HCPCS: 36000; 36415; 71045; 80048; 80053; 81001; 82962; 83036; 83605; 83880; 85025; 87040; 87631; 93041; 94150; 94640; 94760; 96374; 99285; G0378; J0456; J1650; J2930; J7609; A9270-GY

== ENCOUNTER 2022-10-18 12:00 | Emergency (ER) | payer MEDICARE ==
[2022-10-18 12:14] VITALS: BP 98/47; PULSE 70; O2SAT 97
--- NOTE | 2022-10-18 12:14 | ERPHSYRPT ---
- History of Present Illness Time Seen by Provider: 10/18/22 12:14 Source: patient, family Exam Limitations: no limitations Physician History: This is a right-handed 67-year-old diabetic white male has a history of hyperlipidemia and COPD and was fishing and slipped and fell onto his left shoulder. He has had pain with movement in the left shoulder. It occurred prior to arrival. He has no other complaints of pain or injury. He did not lose conscious. He did not hit his head or injure his neck. Occurred: just prior to arrival Reason for Fall: slipped ([place] Injuries/Pain Location: upper extremity (Left shoulder) Loss of Consciousness: no loss of consciousness Quality: aching Severity of Pain-Max: moderate Severity of Pain-Current: moderate Modifying Factors: Improves With: movement Associated Symptoms (Fall): denies symptoms Allergies/Adverse Reactions: aspirin Allergy (Severe, Verified 10/18/22 12:10) throat swells cefpodoxime [From Vantin] Allergy (Mild, Verified 10/18/22 12:10) Rash levofloxacin [From Levaquin] Allergy (Mild, Verified 10/18/22 12:10) Hives moxifloxacin [From Avelox] Allergy (Mild, Verified 10/18/22 12:10) Rash fexofenadine [From Iliana] Allergy (Verified 10/18/22 12:10) Home Medications: Metformin HCl Xr 500 mg [Glucophage XR 500 MG] 1,000 mg PO DAILY 09/09/13 [History] Montelukast Sodium 10 mg [Singulair 10 MG] 10 mg PO DAILY 09/09/13 [History] Tamsulosin HCl 0.4 mg [Flomax 0.4 MG] 0.4 mg PO DAILY 09/09/13 [History] Albuterol Sulfate [Ventolin Hfa] 2 puff IH QID 07/02/18 [History] Gabapentin [Neurontin ] 400 mg PO HS 07/02/18 [History] Glimepiride 2 mg [Amaryl 2 MG] 8 mg PO 0800 07/02/18 [History] Pravastatin Sodium 10 mg PO DAILY 07/02/18 [History] levalbuterol HCL [Xopenex] 1.25 mg IH TID 07/02/18 [History] Adalimumab [Humira] 40 mg SQ UD 08/01/19 [History] Cetirizine HCl/Pseudoephedrine [Zyrtec-D Tablet] 1 tab PO DAILY 08/01/19 [History] Fluticasone/Salmeterol 500/50* [Advair 500-50 Diskus] 1 each IH BID 08/01/19 [History] Hx Tetanus, Diphtheria Vaccination/Date Given: No Hx Influenza Vaccination/Date Given: Yes Hx Pneumococcal Vaccination/Date Given: Yes (less than 5 years possibly 2011) Travel Risk - International Travel Have you traveled outside of the country in past 3 weeks: No - Coronavirus Screening Are you exhibiting any of the following symptoms?: No Close contact with a COVID-19 positive Pt in past 14-21 Days: No - Review of Systems Constitutional: No Symptoms Eyes: No Symptoms Ears, Nose, & Throat: No Symptoms Respiratory: No Symptoms Cardiac: No Symptoms Abdominal/Gastrointestinal: No Symptoms Genitourinary Symptoms: No Symptoms Musculoskeletal: Fall, Injury (Left shoulder) Skin: No Symptoms Neurological: No Symptoms Psychological: No Symptoms Endocrine: No Symptoms Hematologic/Lymphatic: No Symptoms Immunological/Allergic: No Symptoms All Other Systems: Reviewed and Negative - Past Medical History Pertinent Past Medical History: No Neurological History: No Pertinent History ENT History: Cataracts Cardiac History: No Pertinent History Respiratory History: COPD Endocrine Medical History: Diabetes Type II Musculoskeletal History: No Pertinent History GI Medical History: Hernia History: No Pertinent History Psycho-Social History: Anxiety Male Reproductive Disorders: No Pertinent History - Past Surgical History Past Surgical History: Yes (Hernia, Hip replacement) Neuro Surgical History: No Pertinent History Cardiac: No Pertinent History Respiratory: No Pertinent History Gastrointestinal: No Pertinent History Genitourinary: No Pertinent History Musculoskeletal: No Pertinent History Male Surgical History: No Pertinent History Other Surgical History: sinus surgery. bilateral cataracts. RIGHT HIP REPLACEMENT - Social History Smoking Status: Never smoker How long have you smoked: less than Exposure to second hand smoke: Yes Drug Use: none Patient Lives Alone: No - Nursing Vital Signs Nursing Vital Signs: Initial Vital Signs Temperature 97.8 F 10/18/22 12:13 Pulse Rate 70 10/18/22 12:13 Respiratory Rate 18 10/18/22 12:13 Blood Pressure 98/47 10/18/22 12:13 O2 Sat by Pulse Oximetry 97 10/18/22 12:13 Pain Scale Pain Intensity 10 - Floyd Coma Score Best Eye Response (Floyd): (4) open spontaneously Best Verbal Response ([place]): (5) oriented Best Motor Response ([place]): (6) obeys commands Floyd Total: 15 - Physical Exam General Appearance: no apparent distress, alert, anxiety Head Injury: no evidence of injury Eye Exam: PERRL/EOMI, eyes nml inspection ENT Exam: airway nml, nml ext.inspection Neck Exam: supple, trachea midline, full range of motion, normal alignment Respiratory/Chest Exam: normal breath sounds, No chest tenderness, No respiratory distress, No ecchymosis, No crepitus Gastrointestinal Exam: No tenderness Rectal Exam: not done Back Exam: normal inspection, normal range of motion, No CVA tenderness, No vertebral tenderness Extremity Exam: normal inspection, limited range of motion (Left shoulder), tenderness (Left shoulder with decreased range of movement), No deformities, No evidence of injury Neurologic Exam: alert, oriented x 3, cooperative, communication manager II-XII nml as tested, normal mood/affect, nml cerebellar function, nml station & gait, sensation nml Skin Exam: normal color, warm, dry SpO2 Interpretation: normal O2 Delivery: Room Air - Course Nursing assessment & vital signs reviewed: Yes Ordered Tests: Active Orders 24 hr Category Date Time Status Sling Application STAT Care 10/18/22 12:38 Active SHOULDER Stat Exams 10/18/22 12:12 Completed Medication Summary Discontinued Medications Generic Name Dose Route Start Last Admin Trade Name Johnq PRN Reason Stop Dose Admin Orphenadrine Citrate 100 mg 10/18/22 12:39 Orphenadrine Citrate 100 Mg Er Tab PO 10/18/22 12:40 STAT ONE Oxycodone/Acetaminophen 1 tab 10/18/22 12:39 Oxycodone Hcl/Apap 5 Mg/325 Mg Tablet PO 10/18/22 12:40 STAT STA - Progress Progress: improved, pain not gone completely Progress Note: 10/18/22 12:49 X-ray of left shoulder was interpreted by the radiologist and reviewed by me. The impression was reviewed by me as well. There is no evidence of any acute fracture. There is moderate AC degenerative arthropathy which is now present and not present and x-ray left shoulder in the year 2007. This patient's medical issue is 1 of low complexity. The level of complexity in the work-up performed was based on the review of the patient's past medical history, review of the patient's medication list, review of the patient's drug allergy list, review of the history present illness and findings on physical examination. The work-up includes x-ray of the patient's left shoulder. The impression of the radiologist interpretation shows no acute fracture of the left shoulder but degenerative changes. Discharge plan is to place the patient in a left sling, provided prescription of Percocet pain medicine and have the patient follow-up with [facility] orthopedic clinic for further evaluation management. Counseled pt/family regarding: diagnosis, need for follow-up, rad results Medical Desision Making - Independent Historian Additional History obtained from: Spouse - Discussion of managment Agreed on:: Treatment plan, need for follow-up - Diagnostic Testing Diagnostic test were ordered, analyzed, and reviewed by me: Yes Radiological Interpretation: Reviewed by me - Risk of complications The pt has a mod risk of morbidity or mortality based on: Need for prescription drug management - Departure Departure Disposition: Home Clinical Impression: Left shoulder pain, Degenerative arthritis of left shoulder region, Fall with no injury Condition: Stable Critical Care Time: No Referrals: MEGHAN CALLE MD [Primary Care Provider] - Follow up/PCP as directed Additional Instructions: Ice pack to left shoulder area 3 times a day for the next 48 hours. Wear sling for comfort. Take your medication as prescribed. Follow-up in the [facility] orthopedic clinic tomorrow morning between 8 AM and 10 AM. It is a walk-in clinic you do not need an appointment. They will evaluate you and determine if you need further evaluation management. Prescriptions: Oxycodone HCl/Acetaminophen [Percocet 5-325 mg Tablet] 1 each PO Q8H PRN PRN #6 tablet MDD 3 PRN Reason: Moderate To Severe Pain
[2022-10-18] MEDS ORDERED: PERCOCET TABLET 5/325MG PO STA (12:39)
[2022-10-18] MEDS ORDERED: Norflex 100 MG Tablet PO ONE ×2 (12:39→12:47)
--- NOTE | 2022-10-18 12:40 | XRAY ---
Indication: Pain following fall. Comparison: March 10, 2008 3 view left shoulder now demonstrates moderate AC degenerative arthropathy with small inferior spurring and mild degenerative changes visualized spine. No other bony, articular, or soft tissue abnormalities.
[2022-10-18] MEDS ORDERED: PERCOCET TABLET 5/325MG ONE (12:47)
== END 2022-10-18 13:34 | disposition home or self-care (01) ==
LOC: ED 12:00
DX: M25.512 Pain in left shoulder (principal); W01.0XXA Fall on same level from slipping, tripping and stumbling without subsequent striking against object, initial encounter; Y93.19 Activity, other involving water and watercraft; Y92.838 Other recreation area as the place of occurrence of the external cause; M19.012 Primary osteoarthritis, left shoulder; E78.5 Hyperlipidemia, unspecified; E11.9 Type 2 diabetes mellitus without complications; Z79.891 Long term (current) use of opiate analgesic; Z79.84 Long term (current) use of oral hypoglycemic drugs; Z79.899 Other long term (current) drug therapy
CPT/HCPCS: 73030; 99283; A9270-GY